=== PATIENT | male | born 1975 | race Hispanic/Latino ===

== ENCOUNTER 2018-10-23 14:37 | Observation (INO) | payer MEDICARE ==
[2018-10-23 15:18] LABS: #Basophils 0.1 thou/uL (0.0-0.2); #Eosinphils 0.1 thou/uL (0.0-0.7); #Lymphocytes 2.1 thou/uL (1.20-3.40); #Monocytes 0.6 thou/uL (0.11-0.59); #Neutrophils 6.4 thou/uL (1.40-6.50); %Basophils 0.6 % (0.0-1.0); %Eosinophils 0.6 % (0.0-10.0); %Lymphocytes 22.7 % (21.0-51.0); %Monocytes 6.8 % (0.0-10.0); %Neutrophils 69.3 % (42.0-75.0); Hemoglobin 13.5 g/dL (14.0-18.0); Mean Corpuscular HGB CONC 34.7 g/dL (32.0-36.0); Mean Corpuscular Hemoglobin 30.1 pg (27.0-31.0); Mean Corpuscular Volume 86.8 fL (78.0-98.0); Mean Platelet Volume 8.6 fL (7.4-10.4); Platelet Count 279 thou/uL (130-400); RBC Distribution Width 11.3 % (11.5-14.5); White Blood Cell (WBC) Count 9.2 thou/uL (4.8-10.8)
[2018-10-23 15:40] LABS: ALT (SGPT) 21 U/L (8-55); AST (SGOT) 18 U/L (5-34); Alkaline Phosphatase 66 U/L (40-150); Anion Gap 14 mmol/L (10-20); BUN (Urea Nitrogen) 21 mg/dL (8.9-20.6); Bilirubin, Total 0.6 mg/dL (0.2-1.2); Calc. Creatinine Clearance 0 mL/min (70-130); Calcium 9.9 mg/dL (7.8-10.44); Carbon Dioxide 26 mmol/L (22-29); Chloride 99 mmol/L (98-107); Estimated GFR-MDRD 45; Globulin 3.2 g/dL (2.4-3.5); Glucose 159 mg/dL (70-105); Lipase 33 U/L (8-78); Potassium 3.4 mmol/L (3.5-5.1); Protein, Total 8.2 g/dL (6.0-8.3); Sodium 136 mmol/L (136-145)
--- NOTE | 2018-10-23 16:13 | RAD ---
PORTABLE CHEST 1 VIEW: DATE: 10/23/2018. TIME: 3:10 p.m. HISTORY: Hypoglycemia. FINDINGS: Comparison is made with the exam of 02/16/2013. The heart size is normal. The lungs are expanded without focal areas of consolidation, pneumothorace s, or pleural effusions. There is mild elevation of the right hemidiaphragm. IMPRESSION: No radiographic evidence of acute cardiopulmonary process. POS: [facility]
--- NOTE | 2018-10-23 18:03 | CT ---
CT BRAIN: 10/23/2018 PROVIDED CLINICAL HISTORY: Altered mental status. COMPARISON: 03/20/2008 FINDINGS: The ventricular system appears normal in size and morphology. There is no evidence for intracranial hemorrhage or mass effect. The extracranial soft tissues and osseous structures demonstrate an unrem arkable CT appearance. IMPRESSION: No evidence for intracranial hemorrhage or mass effect. POS: [facility]
[2018-10-23 18:46] LABS: Troponin I Less than 0.010 ng/mL (< 0.028)
[2018-10-23 18:47] LABS: Acetaminophen Less than 6.0 mcg/mL (10.0-30.0); Alcohol Less than 10 mg/dL (Less than 10); Salicylate Less than 8.0 mg/dL (15.0-30.0)
[2018-10-23 18:55] LABS: Bilirubin Negative (Negative); Blood, Urine Negative (Negative); Clarity Clear (Clear); Glucose, Urine (Dipstick) Normal (Negative); Leukocyte Negative Leu/uL (Negative); Nitrite Negative (Negative); Protein, Urine (Dipstick) 20 mg/dL (Neg-Trace); Urobilinogen Normal mg/dL (Less than 2)
[2018-10-23 19:07] LABS: Amphetamine Not Detected (NotDetected); Barbiturates Screen Not Detected (NotDetected); Benzodiazepine Screen Not Detected (NotDetected); Cocaine Metabolite Screen Not Detected (NotDetected); Medtox Control Line Valid? VALID (VALID); Medtox Reader # READER 4; Methadone Not Detected (NotDetected); Methamphetamine Not Detected (NotDetected); Opiate Screen Not Detected (NotDetected); Oxycodone Screen Not Detected (NotDetected); Phencyclidine (PCP) Not Detected (NotDetected); THC/Cannabinoid Screen Not Detected (NotDetected); Tricyclic Screen Not Detected (NotDetected)
[2018-10-24] MEDS ORDERED: Dextrose 5% in Water 1,000 ML IV PRN (07:30)
[2018-10-24] MEDS ORDERED: Ondansetron ODT 4 MG TAB PO PRN (07:30)
[2018-10-24] MEDS ORDERED: HumaLOG 300 UNITS/3 ML VIAL SC PRN (07:30)
[2018-10-24] MEDS ORDERED: Dextrose 50% Abboject 50 ML SYRINGE SLOW IVP PRN (07:30)
[2018-10-24 07:41] LABS: #Basophils 0.1 thou/uL (0.0-0.2); #Eosinphils 0.1 thou/uL (0.0-0.7); #Lymphocytes 2.6 thou/uL (1.20-3.40); #Monocytes 0.6 thou/uL (0.11-0.59); #Neutrophils 5.5 thou/uL (1.40-6.50); %Basophils 1.1 % (0.0-1.0); %Eosinophils 1.4 % (0.0-10.0); %Lymphocytes 29.1 % (21.0-51.0); %Neutrophils 61.5 % (42.0-75.0); Hemoglobin 13.5 g/dL (14.0-18.0); Mean Corpuscular HGB CONC 33.4 g/dL (32.0-36.0); Mean Corpuscular Hemoglobin 29.6 pg (27.0-31.0); Mean Corpuscular Volume 88.8 fL (78.0-98.0); Mean Platelet Volume 8.4 fL (7.4-10.4); Platelet Count 263 thou/uL (130-400); RBC Distribution Width 11.4 % (11.5-14.5); Red Blood Cell (RBC) Count 4.55 mill/uL (4.70-6.10)
[2018-10-24] MEDS: Sodium Chloride 0.9% 1,000 ML IV SCH ×3 (07:50→16:55)
--- NOTE | 2018-10-24 08:02 | HP ---
PRIMARY CARE PROVIDER: Stefania Winslow MD The patient was referred to [facility] by [facility] for altered mental status. Currently, he is alert and oriented. He says he does not feel normal, but his thinking is better. He works in a [employer] outside. He states he does drink plenty of water. He has some vague myalgias and headache. PAST MEDICAL HISTORY: Pertinent for diabetes mellitus type 2, takes insulin. He states he takes L insulin and pulls the syringe up to 0.6. ALLERGIES: NO MEDICAL ALLERGIES. PAST SURGICAL HISTORY: No past surgical history. FAMILY HISTORY: Mother and many members of his family have diabetes. SOCIAL HISTORY: Single. Nontobacco user. No alcohol. REVIEW OF SYSTEMS: GENERAL: Headache with present illness. No dizziness or fainting. EYES: He has blurry vision at times. No double vision or flashing lights. EAR, NOSE, AND THROAT: No ear pain or drainage. No nasal bleeding. No trouble swallowing. CARDIAC: No pressure chest pain, orthopnea, or paroxysmal nocturnal dyspnea. RESPIRATIONS: No cough, wheezing, or asthma. GASTROINTESTINAL: He has some mild epigastric pain. Sometimes it last all day long. Does not stop him from eating, etc. He has no nausea, vomiting, diarrhea, constipation, or blood in his stools. GENITOURINARY: No hematuria or dysuria. MUSCULOSKELETAL: Some vague aches and pains in his muscles. No specific joint complaints. NEUROLOGICAL: No history of stroke or seizures. No focal weakness. PSYCHIATRIC: No anxiety or depression. SKIN: No bruising, bleeding, or rash. HEME/LYMPH: No tender or swollen lymph nodes in axilla, inguinal, or cervical area. PHYSICAL EXAMINATION: GENERAL: He is a little bit sluggish, but actually able to answer questions. VITAL SIGNS: Blood pressure 115/88, pulse 72, respirations 18, temperature 98.3, and pulse ox 98% on room air. HEAD, EYES, EARS, NOSE, AND THROAT: Revealed pupils are equal, round, and reactive to light. Extraocular movements are intact. Sclerae are white. Tympanic membranes are clear. Nose is clear. Oral mucous membranes are wet. Dental hygiene is good. NECK: No jugular venous distention, adenopathy, or thyromegaly. CHEST: Clear to auscultation and percussion. HEART: Had a regular rate and rhythm. First and second second heart sounds are clear. There are no murmurs, no gallops appreciated. ABDOMEN: Soft. Bowel sounds are normal. There is no hepatosplenomegaly. No mass. No rebound. No tenderness. EXTREMITIES: Reveal no cyanosis, clubbing, or edema. PULSES: Carotid, radial, femoral, and dorsalis pedis pulses were strong and symmetrical. SKIN: Warm and dry without bruises or rash. HEME/LYMPH: Reveal no tender or swollen lymph nodes in the axilla, inguinal, or cervical area. No petechial hemorrhages. NEUROLOGICAL: Cranial nerves II through XII are intact. Deep tendon reflexes symmetric. Moves all extremities. IMAGING DATA: Chest x-ray reviewed by me, no cardiomegaly, CHF, infiltrate, etc. CT of the brain reviewed by me, no acute intracranial abnormality. EKG reviewed by me, regular sinus rhythm, normal. LABORATORY DATA: Drug screen negative. Urine clear. Chemistries; sodium 136, potassium 3.4, BUN 21, creatinine 1.7, blood sugar of 159, otherwise normal. CK 353. Cardiac enzymes normal. He noted this was done the previous day at 3:00 in the afternoon. CBC done on 10/23 at 3:00 in the afternoon; white count 9.2, hemoglobin 13.5, and platelet count 279,000. ADMITTING DIAGNOSES: 1. Encephalopathy, improved. 2. Acute renal failure. 3. Diabetes mellitus, type 2, insulin dependent. 4. Rhabdomyolysis. PLAN: 1. Repeat CBC, basic metabolic profile, and CK. 2. IV fluids with normal saline. 3. Obtain medication doses and type from family. 4. Accu-Cheks sliding scale. I suspect this gentleman will continue to clear up through the day and can be discharged later today or early tomorrow morning. Job ID: [id number]
[2018-10-24 08:05] LABS: Anion Gap 14 mmol/L (10-20); BUN (Urea Nitrogen) 19 mg/dL (8.9-20.6); Calc. Creatinine Clearance 0 mL/min (70-130); Calcium 9.5 mg/dL (7.8-10.44); Carbon Dioxide 26 mmol/L (22-29); Chloride 101 mmol/L (98-107); Estimated GFR-MDRD 56; Glucose 116 mg/dL (70-105); Potassium 3.8 mmol/L (3.5-5.1); Sodium 137 mmol/L (136-145)
[2018-10-24 11:45] VITALS: BMI 31.9
[2018-10-24] MEDS: Acetaminophen 325 MG TAB PO PRN ×2 (12:05→16:54)
--- NOTE | 2018-10-24 14:57 | PDOC.EVN ---
Event Note - Event Note Event Note: family brought meds. add HTN, dyslipimia to Dx
[2018-10-25] MEDS: Sodium Chloride 0.9% 1,000 ML IV SCH ×2 (01:05→11:23)
[2018-10-25 08:27] LABS: #Basophils 0.1 thou/uL (0.0-0.2); #Eosinphils 0.1 thou/uL (0.0-0.7); #Lymphocytes 1.8 thou/uL (1.20-3.40); #Monocytes 0.4 thou/uL (0.11-0.59); #Neutrophils 4.5 thou/uL (1.40-6.50); %Basophils 1.1 % (0.0-1.0); %Lymphocytes 25.7 % (21.0-51.0); %Monocytes 6.2 % (0.0-10.0); %Neutrophils 65.1 % (42.0-75.0); Hemoglobin 12.8 g/dL (14.0-18.0); Mean Corpuscular HGB CONC 33.4 g/dL (32.0-36.0); Mean Corpuscular Hemoglobin 29.3 pg (27.0-31.0); Mean Corpuscular Volume 87.8 fL (78.0-98.0); Mean Platelet Volume 8.7 fL (7.4-10.4); Platelet Count 240 thou/uL (130-400); RBC Distribution Width 11.2 % (11.5-14.5); Red Blood Cell (RBC) Count 4.35 mill/uL (4.70-6.10); White Blood Cell (WBC) Count 6.9 thou/uL (4.8-10.8)
[2018-10-25 08:46] LABS: Anion Gap 10 mmol/L (10-20); BUN (Urea Nitrogen) 14 mg/dL (8.9-20.6); CK (CPK) 142 U/L (30-200); Calc. Creatinine Clearance 119 mL/min (70-130); Calcium 9.2 mg/dL (7.8-10.44); Carbon Dioxide 25 mmol/L (22-29); Chloride 108 mmol/L (98-107); Estimated GFR-MDRD 74; Glucose 120 mg/dL (70-105); Potassium 4.4 mmol/L (3.5-5.1); Sodium 139 mmol/L (136-145)
[2018-10-25] MEDS ORDERED: Fenofibrate 48 MG TAB PO SCH (09:00)
[2018-10-25] MEDS ORDERED: LIRAGLUTIDE 0.6 MG SQ SCH (09:00)
[2018-10-25 09:38] LABS: Troponin I Less than 0.010 ng/mL (< 0.028)
[2018-10-25 12:12] VITALS: BP 135/80; TEMP 98.8
[2018-10-25] MEDS ORDERED: Metoclopramide HCl 10 MG/2 ML VIAL IVP SCH (14:00)
[2018-10-25] MEDS ORDERED: Simvastatin 5 MG TAB PO SCH (21:00)
--- NOTE | 2018-10-28 10:27 | EKG ---
Test Reason : AMS Blood Pressure : / mmHG Vent. Rate : 081 BPM Atrial Rate : 081 BPM P-R Int : 124 ms QRS Dur : 082 ms QT Int : 382 ms P-R-T Axes : 001 051 026 degrees QTc Int : 443 ms Normal sinus rhythm Normal ECG Confirmed by ADDIS ZUNIGA DO ([id number]), web content editor TAHIR WELLINGTON ([id number] on 10/28/2018 10:26:54 AM Referred By: EFRAIN Confirmed By:ADDIS ZUNIGA DO
== END 2018-10-25 12:45 | disposition home or self-care (01) ==
LOC: ERS 14:37 → ERHOLD 21:53 → 2SW 10-24 11:26
PROVIDERS: ADMIT Family Medicine; ATTEND Family Medicine
DX: G93.40 Encephalopathy, unspecified (principal); N17.9 Acute kidney failure, unspecified; E11.9 Type 2 diabetes mellitus without complications; M62.82 Rhabdomyolysis; I10 Essential (primary) hypertension; E78.5 Hyperlipidemia, unspecified; F41.9 Anxiety disorder, unspecified; Z79.4 Long term (current) use of insulin; Z79.899 Other long term (current) drug therapy
CPT/HCPCS: 70450; 71045; 80048 ×2; 80053; 80306; 80307; 81003; 82140; 82550 ×3; 82962 ×3; 83690; 84484 ×3; 85025 ×3; 93005 ×2; 96360; 96361 ×3; 99285; G0378 ×4; 36415; 36416; 93010; Q0162

== ENCOUNTER 2021-02-23 14:19 | Outpatient (CLI) | payer MEDICARE | END 2021-02-23 14:20 | disposition home or self-care (01) | LOC: BICRAD 14:19 | PROVIDERS: ATTEND Family Medicine | DX: M54.50 Low back pain, unspecified (principal); M47.814 Spondylosis without myelopathy or radiculopathy, thoracic region; M47.816 Spondylosis without myelopathy or radiculopathy, lumbar region; M41.9 Scoliosis, unspecified | CPT/HCPCS: 72072; 72100 ==